=== PATIENT | male | born 1960 | race Caucasian/White ===

== ENCOUNTER 2023-09-19 05:58 | Emergency (ER) | payer OTHER, MEDICAID, SELFPAY ==
[2023-09-19 06:11] VITALS: BP 147/80; PULSE 76; RESP 18; TEMP 36.6; O2SAT 98; BMI 75.9
--- NOTE | 2023-09-19 06:11 | ED_ITS ---
HPI - Extremity Injury (Upper) <Leanne Rivera DO - Last Filed: 09/20/23 09:53> General Chief Complaint: Extremity Problem,Nontraumatic Stated Complaint: pain in left elbow Time Seen by Provider: 09/19/23 06:07 History of Present Illness HPI narrative: Patient is a 63-year-old male current history of smoking hypertension hyperlipidemia presents today with left arm pain. 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 He frequently gets tendonitis usually it is in his right 1 but it it can happen in his left. Typically gets better with rest ice and ibuprofen and in about 2 days. However he reports that this left elbow pain has not changed with ibuprofen. He denies any weakness numbness or tingling. No wrist pain. No real pain with movement it has not erythematous no fever. He states it also radiates up into his shoulder. He is noticing some back discomfort. His back is also nontender to touch he just got a massage. He denies absolutely any sort of chest pain no shortness of breath nausea or vomiting. He is here today because the discomfort continues and it seems to be getting a little worse. Related Data Previous Rx's Medication Instructions Recorded hydrocodone 5 mg-acetaminophen 325 1 tab PO TID PRN pain #8 tabs 09/19/23 mg tablet Patient History <Leanne Rivera DO - Last Filed: 09/20/23 09:53> Social History Smoking Status: Current every day smoker Exam <Leanne Rivera DO - Last Filed: 09/20/23 09:53> Initial Vital Signs Initial Vital Signs: Vital Signs Temperature 97.9 F 09/19/23 06:11 Pulse Rate 76 09/19/23 06:11 Respiratory Rate 18 09/19/23 06:11 Blood Pressure 147/80 H 09/19/23 06:11 Pulse Oximetry 98 09/19/23 06:11 Oxygen Delivery Method Room Air 09/19/23 06:11 GENERAL: Alert pleasant well-appearing 63-year-old male and in no acute distress. HEENT: Head atraumatic,EOMI, pupils reactive, face symmetric, moist mucous membranes CARDIOVASCULAR: Regular rate and rhythm without murmurs, rubs or gallops. RESPIRATORY: Breath sounds equal bilaterally, no wheezes rales or rhonchi. ABDOMEN: Soft, nontender. Normoactive bowel sounds all 4 quadrants. No guarding or rebound. EXTREMITIES: Normal range of motion, no clubbing or edema. Neurovascularly intact Left upper extremity at elbow full flexion extension supination pronation no pain with movement. No pain with wrist movement distal radial pulse intact, sensation over deltoid and BACK: No vertebral tenderness pain and back is not reproducible with palpation. NEUROLOGICAL: Alert and oriented x4.Normal gait and speech. SKIN: Warm, dry, no laceration, no petechiae, no rashes or lesions. <Gabriela Curtis MD - Last Filed: 09/19/23 12:16> Initial Vital Signs Initial Vital Signs: Vital Signs Temperature 97.9 F 09/19/23 06:11 Pulse Rate 76 09/19/23 06:11 Respiratory Rate 18 09/19/23 06:11 Blood Pressure 147/80 H 09/19/23 06:11 Pulse Oximetry 98 09/19/23 06:11 Oxygen Delivery Method Room Air 09/19/23 06:11 Scores <Leanne Rivera DO - Last Filed: 09/20/23 09:53> HEART Score Heart Score history: Moderately Suspicious Heart Score Age: 45-64 years old Heart Score risk factors: > 3 risk factors or hx of atherosclerotic disease Course <Leanne Rivera DO - Last Filed: 09/20/23 09:53> Orders Ordered: Discontinued Medications Hydrocodone Bitart/Acetaminophen (Hydrocodone/Acet 5/325 Tablet) 1 tab PO NOW ONE Stop: 09/19/23 06:30 Last Admin: 09/19/23 06:44 Dose: 1 tab Documented By: GC Hydrocodone Bitart/Acetaminophen (Hydrocodone/Acet 5/325 Prepack) 1 bottle MISC DIRECTED ONE Stop: 09/19/23 08:35 Last Admin: 09/19/23 09:12 Dose: 1 bottle Documented By: CTS Vital Signs Vital signs: Vital Signs - 8 hr 09/19/23 06:11 09/19/23 09:16 Temperature 97.9 F Pulse Rate 76 77 Respiratory Rate 18 16 Blood Pressure 147/80 H 138/80 Pulse Oximetry 98 97 Oxygen Delivery Method Room Air Room Air <Gabriela Curtis MD - Last Filed: 09/19/23 12:16> Orders Ordered: Discontinued Medications Hydrocodone Bitart/Acetaminophen (Hydrocodone/Acet 5/325 Tablet) 1 tab PO NOW ONE Stop: 09/19/23 06:30 Last Admin: 09/19/23 06:44 Dose: 1 tab Documented By: GC Hydrocodone Bitart/Acetaminophen (Hydrocodone/Acet 5/325 Prepack) 1 bottle MISC DIRECTED ONE Stop: 09/19/23 08:35 Last Admin: 09/19/23 09:12 Dose: 1 bottle Documented By: CTS Vital Signs Vital signs: Vital Signs - 8 hr 09/19/23 06:11 09/19/23 09:16 Temperature 97.9 F Pulse Rate 76 77 Respiratory Rate 18 16 Blood Pressure 147/80 H 138/80 Pulse Oximetry 98 97 Oxygen Delivery Method Room Air Room Air MDM - Extremity Injury (Upper) <Leanne Rivera DO - Last Filed: 09/20/23 09:53> Lab Data 09/19/23 06:50 09/19/23 06:50 Labs: Lab Results 09/19/23 Range/Units 06:50 WBC 6.0 (4.5-11.0) X10^3/uL RBC 5.00 (4.5-5.9) X10^6/uL Hgb 16.1 (13.5-17.5) g/dL Hct 46.1 (41-53) % MCV 92.1 (80-100) fL MCH 32.2 (26-34) PG MCHC 35.0 (30-36) % RDW 13.1 (11.6-14.8) % Plt Count 290 (150-400) X10^3/uL Neut % (Auto) 52.1 (50-75) % Lymph % (Auto) 31.8 (25-40) % Pettis % (Auto) 10.5 (3-14) % Eos % (Auto) 4.2 H (2-4) % Baso % (Auto) 1.4 (0-2) % Neut # (Auto) 3100 (1498-4620) /uL Lymph # (Auto) 1900 (3368-3353) /uL Pettis # (Auto) 600 (0-900) /uL Eos # (Auto) 300 (0-450) /uL Baso # (Auto) 100 (0-100) /uL Sodium 136 L (137-145) mmol/L Potassium 4.7 (3.4-5.1) mmol/L Chloride 105 (98-107) mmol/L Carbon Dioxide 27 (22-32) mmol/L BUN 16 (9-20) mg/dL Creatinine 0.91 (0.66-1.25) mg/dL Estimated GFR > 60 (>60) mL/min BUN/Creatinine Ratio 17.6 (6-22) Glucose 112 H (80-110) mg/dL Calcium 9.3 (8.4-10.2) mg/dL Total Bilirubin 0.6 (0.2-1.3) mg/dL AST 28 (17-59) IU/L ALT 22 (<50) IU/L Alkaline Phosphatase 69 (38-126) U/L Total Creatine Kinase 78 (55-170) U/L Troponin I < 0.012 (0.01-0.034) ng/mL Total Protein 7.7 (6.3-8.2) g/dL Albumin 4.2 (3.5-5.0) g/dL Globulin 3.5 (1.7-4.1) g/dL Albumin/Globulin Ratio 1.2 (1.0-2.8) Lipase 30 (23-300) U/L ECG Data Interpretation: Normal sinus rhythm rate 67 AZ interval 160 QRS [address] changes no priors to compare MDM Narrative Medical decision making narrative: Patient is 63-year-old male with multiple comorbidities including hypertension hyperlipidemia and current smoking presents today with left arm achiness. It has not getting better with normal NSAID treatment for tendinitis. He has not actively having chest pain or shortness of breath. Cardiac workup initiated. No obvious EKG changes at this time. Patient signed out to Ever <Gabriela Curtis MD - Last Filed: 09/19/23 12:16> Lab Data Labs: Lab Results 09/19/23 Range/Units 06:50 WBC 6.0 (4.5-11.0) X10^3/uL RBC 5.00 (4.5-5.9) X10^6/uL Hgb 16.1 (13.5-17.5) g/dL Hct 46.1 (41-53) % MCV 92.1 (80-100) fL MCH 32.2 (26-34) PG MCHC 35.0 (30-36) % RDW 13.1 (11.6-14.8) % Plt Count 290 (150-400) X10^3/uL Neut % (Auto) 52.1 (50-75) % Lymph % (Auto) 31.8 (25-40) % Pettis % (Auto) 10.5 (3-14) % Eos % (Auto) 4.2 H (2-4) % Baso % (Auto) 1.4 (0-2) % Neut # (Auto) 3100 (0841-2239) /uL Lymph # (Auto) 1900 (3836-5723) /uL Pettis # (Auto) 600 (0-900) /uL Eos # (Auto) 300 (0-450) /uL Baso # (Auto) 100 (0-100) /uL Sodium 136 L (137-145) mmol/L Potassium 4.7 (3.4-5.1) mmol/L Chloride 105 (98-107) mmol/L Carbon Dioxide 27 (22-32) mmol/L BUN 16 (9-20) mg/dL Creatinine 0.91 (0.66-1.25) mg/dL Estimated GFR > 60 (>60) mL/min BUN/Creatinine Ratio 17.6 (6-22) Glucose 112 H (80-110) mg/dL Calcium 9.3 (8.4-10.2) mg/dL Total Bilirubin 0.6 (0.2-1.3) mg/dL AST 28 (17-59) IU/L ALT 22 (<50) IU/L Alkaline Phosphatase 69 (38-126) U/L Total Creatine Kinase 78 (55-170) U/L Troponin I < 0.012 (0.01-0.034) ng/mL Total Protein 7.7 (6.3-8.2) g/dL Albumin 4.2 (3.5-5.0) g/dL Globulin 3.5 (1.7-4.1) g/dL Albumin/Globulin Ratio 1.2 (1.0-2.8) Lipase 30 (23-300) U/L MDM Narrative Medical decision making narrative: Patient is 63-year-old male with multiple comorbidities including hypertension hyperlipidemia and current smoking presents today with left arm achiness. It has not getting better with normal NSAID treatment for tendinitis. He has not actively having chest pain or shortness of breath. Cardiac workup initiated. No obvious EKG changes at this time. Patient signed out to Ever Curtis -no acute findings on labs or imaging. Patient denies significant relief of pain with Vicodin, however he has full range of motion, no neurovascular compromise, equal strength bilaterally. Uncertain explanation for patient's symptoms. Patient was advised of lab and imaging findings, I recommended close primary care follow up and even possibly orthopedic follow up if there was no answer for patient's pain. Patient lives in [place] and declines a local referral. Short course of pain medication sent to patient's pharmacy of choice. Rice instructions counseled at bedside. Discharge Plan Departure Patient Disposition: Home Clinical Impression: Elbow pain Qualifiers: Laterality: left Qualified Code(s): M25.522 - Pain in left elbow Instructions: DI for Elbow Pain Activity Restrictions/Additional Instructions: Take the hydrocodone and ibuprofen together for added pain control. You may add additional Tylenol, however keep in mind that the Vicodin prescribed has some Tylenol in it and you should not take more than 4000 mg of Tylenol daily. Follow up with your primary care physician if you continued to have pain. Continue to rest her elbow, ice it as needed, and use gentle stretching exercises. Prescriptions: New hydrocodone-acetaminophen 5-325 mg tablet 1 tab PO TID PRN (Reason: pain) Qty: 8 0RF Stand Alone Forms: Patient Portal/API
--- NOTE | 2023-09-19 06:29 | DI.RAD.S_ITS ---
PROCEDURE: XR ELBOW LT MIN 3V INDICATIONS: pain TECHNIQUE: 3 views of the elbow were acquired. COMPARISON: None. FINDINGS: Bones: No fractures or dislocations. No suspicious bony lesions. Calcification adjacent to the lateral epicondyle. Calcifications adjacent to the medial epicondyle. Soft tissues: No elbow joint effusion. No suspicious soft tissue calcifications. IMPRESSION: No acute bony abnormality or significant joint effusion. Calcifications adjacent to the epicondyles are favored to represent calcific tendinitis. Dictated by: Santos Noel M.D. on 09/19/2023 at 8:25 Approved by: Santos Noel M.D. on 09/19/2023 at 8:26
--- NOTE | 2023-09-19 06:29 | DI.RAD.S_ITS ---
PROCEDURE: XR CHEST 1V INDICATIONS: chest pain TECHNIQUE: One view of the chest was acquired. COMPARISON: None. FINDINGS: Surgical changes and devices: None. Lungs and pleura: Lungs are clear. No pleural effusions or pneumothorax. Mediastinum: Mediastinal contours appear normal. Heart size is normal. Bones and chest wall: No suspicious bony lesions. Overlying soft tissues appear unremarkable. IMPRESSION: No acute cardiopulmonary abnormality is seen. Dictated by: Santos Noel M.D. on 09/19/2023 at 8:26 Approved by: Santos Noel M.D. on 09/19/2023 at 8:27
[2023-09-19] MEDS: HYDROCODONE/ACET 5/325 TABLET 1 TAB PO (06:44)
[2023-09-19 07:03] LABS: Add Manual Diff / Slide Review NO; Basophils Absolute Auto 100 /uL (0-100); Basophils Percent Auto 1.4 % (0-2); Eosinophils Absolute Auto 300 /uL (0-450); Eosinophils Percent Auto 4.2 % (2-4); Hematocrit 46.1 % (41-53); Hemoglobin 16.1 g/dL (13.5-17.5); Lymphocytes Absolute Auto 1900 /uL (1100-4500); Lymphocytes Percent Auto 31.8 % (25-40); Mean Corpuscular Hemoglobin 32.2 PG (26-34); Mean Corpuscular Volume 92.1 fL (80-100); Monocytes Absolute Auto 600 /uL (0-900); Monocytes Percent Auto 10.5 % (3-14); Neutrophils Absolute Auto 3100 /uL (1500-7000); Neutrophils Percent Auto 52.1 % (50-75); Platelet Count 290 X10^3/uL (150-400); Red Cell Distribution Width 13.1 % (11.6-14.8)
[2023-09-19 07:24] LABS: Alanine Aminotransferase 22 IU/L (<50); Albumin 4.2 g/dL (3.5-5.0); Albumin Globulin Ratio 1.2 (1.0-2.8); Alkaline Phosphatase 69 U/L (38-126); Aspartate Aminotransferase 28 IU/L (17-59); BUN Creatinine Ratio 17.6 (6-22); Bilirubin Total 0.6 mg/dL (0.2-1.3); Blood Urea Nitrogen 16 mg/dL (9-20); Calcium 9.3 mg/dL (8.4-10.2); Carbon Dioxide 27 mmol/L (22-32); Chloride 105 mmol/L (98-107); Creatine Kinase 78 U/L (55-170); Estimated Glomerular Filt Rate > 60 mL/min (>60); Globulin 3.5 g/dL (1.7-4.1); Glucose 112 mg/dL (80-110); HEMOLYSIS < 15 (0-50); Lipase 30 U/L (23-300); Potassium 4.7 mmol/L (3.4-5.1); Sodium 136 mmol/L (137-145); Total Protein 7.7 g/dL (6.3-8.2)
[2023-09-19 07:34] LABS: Troponin I < 0.012 ng/mL (0.01-0.034)
[2023-09-19] MEDS: HYDROCODONE/ACET 5/325 PREPACK 1 BOTTLE MISC (09:12)
[2023-09-19 09:16] VITALS: BP 138/80; PULSE 77; RESP 16; O2SAT 97
== END 2023-09-19 09:17 | disposition home or self-care (01) ==
PROVIDERS: Emergency Provider Emergency Medicine
DX: M25.522 Pain in left elbow (principal); I10 Essential (primary) hypertension; F17.200 Nicotine dependence, unspecified, uncomplicated
CPT/HCPCS: 36415; 71045; 73080; 80053; 82550; 83690; 84484; 85025; 93005; 99284